=== PATIENT | male | born 1945 | race Caucasian/White ===

== ENCOUNTER → 2023-06-22 11:23 | Outpatient (REF) | payer MEDICARE, OTHER, SELFPAY | LOC: HWRAD 11:23 | PROVIDERS: ATTENDING PHYSICIAN Urology; FAMILY PHYSICIAN Internal Medicine; REFERRING PHYSICIAN Internal Medicine Critical Care Medicine | DX: R91.1 Solitary pulmonary nodule (principal); N20.0 Calculus of kidney | CPT/HCPCS: 71250; 76775 ==

== ENCOUNTER → 2023-07-08 13:40 | Outpatient (REF) | payer MEDICARE, OTHER, SELFPAY | LOC: RCS 13:40 | PROVIDERS: ATTENDING PHYSICIAN Internal Medicine Cardiovascular Disease; FAMILY PHYSICIAN Internal Medicine | DX: I42.9 Cardiomyopathy, unspecified (principal); I35.1 Nonrheumatic aortic (valve) insufficiency | CPT/HCPCS: 93306; 93356 ==

== ENCOUNTER → 2024-06-27 13:59 | Outpatient (REF) | payer MEDICARE, OTHER, SELFPAY | LOC: HWRAD 13:59 | PROVIDERS: ATTENDING PHYSICIAN Urology; FAMILY PHYSICIAN Internal Medicine | DX: N20.0 Calculus of kidney (principal) | CPT/HCPCS: 76775 ==

== ENCOUNTER → 2024-07-02 12:45 | Outpatient (REF) | payer MEDICARE, SELFPAY | LOC: HWRCS 12:45 | PROVIDERS: ATTENDING PHYSICIAN Internal Medicine Cardiovascular Disease; FAMILY PHYSICIAN Internal Medicine | DX: I42.9 Cardiomyopathy, unspecified (principal); I10 Essential (primary) hypertension | CPT/HCPCS: 93306 ==

== ENCOUNTER → 2024-11-06 13:39 | Outpatient (REF) | payer MEDICARE, SELFPAY | LOC: HWRAD 13:39 | PROVIDERS: ATTENDING PHYSICIAN Internal Medicine | DX: M79.642 Pain in left hand (principal); M25.512 Pain in left shoulder | CPT/HCPCS: 71101; 73030; 73130 ==

== ENCOUNTER 2025-01-03 14:28 | Inpatient (IN) | payer MEDICARE, OTHER, SELFPAY ==
[2025-01-03 11:08] VITALS: BP 123/62
[2025-01-03 11:29] LABS: Glucose - Point of Care 157 mg/dl (70-99)
[2025-01-03 11:33] LABS: Hematocrit 49.1 % (39.0-52.0); Hemoglobin 16.1 g/dL (13.0-18.0); Mean Corp Hgb Conc. 32.8 g/dL (33.0-37.0); Mean Corpuscular Volume 101.4 fL (80.0-94.0); Nucleated Red Blood Cells % 0 % (-); Platelet Count 176 10^3/uL (130-400); Red Cell Dist. Width 13.3 % (11.5-14.5)
--- NOTE | 2025-01-03 11:42 | ED.GENMED ---
History of Present Illness
General
Chief Complaint: Fainting Sensation
Time Seen by Provider: 01/03/25 11:10
History of Present Illness
History of Present Illness:
Patient is a 79-year-old man with history of TBI, hypertension, hyperlipidemia, factor V Leiden presenting to the emergency department with concerns for near syncope. Patient states the last he remembers is he was shaving. He then woke up on the
bathroom floor. Per patient's she states that patient came out of the bathroom. He was standing in the bathroom doorway when he started to stare off. She then grabbed him to help him sit down and noticed that his left arm was completely
flaccid. She does note that he was overall weak and she was holding him up by the right arm. She helped him sit on a chair and then he eventually slid off the chair. Shortly after he came to. There was no postictal phase. No urinary
incontinence. No tongue biting. His eyes were open the entire time to staring off. Patient at this time has no complaints. He feels completely back to his normal self
Phy Exam
Physical Exam
Physical Exam:
GENERAL: in no acute distress
HEENT: normocephalic, extraocular movements intact, moist oral mucosa
NECK: normal inspection
RESPIRATORY: no respiratory distress, clear to auscultation bilaterally
CARDIOVASCULAR: regular rate and rhythm
ABDOMEN/: soft, non-distended, non-tender to palpation, no rebound or guarding
EXTREMITIES: non-tender, no edema/swelling
NEUROLOGIC: awake and alert, moves all extremities, equal strength in upper and lower extremities, normal sensation, normal [id number], NIH 0
SKIN: warm
Course
Orders/Labs/Results
Orders:
Orders
01/03/25 11:05
Electrocardiogram (*1) Urgent
Reason for Study: Chest Pain
Cardiac Monitoring- Treatment ONCE
EKG- Treatment ONCE
IV Insert/Care/Rem.- Treatment PRN
01/03/25 11:06
Complete Blood Count/With Diff Urgent
Comprehensive Metabolic Panel Urgent
Prothrombin Time Urgent
Troponin I Urgent
01/03/25 11:10
Orthostatic VS- Treatment ONCE
01/03/25 11:11
CT Head W/o Iv Contrast Urgent
Comment:
Reason For Exam: near syncope
Abnormal Lab Results
01/03/25 01/03/25
11:06 11:27
MCV 101.4 H fL
(80.0-94.0)
MCH 33.3 H pg
(27.0-31.0)
MCHC 32.8 L g/dL
(33.0-37.0)
PT 16.3 H Sec
(11.4-14.6)
BUN 26 H mg/dl
(9-20)
Glucose 154 H mg/dl
(70-99)
POC Glucose 157 H mg/dl
(70-99)
01/03/25 11:06
01/03/25 11:06
Vital Signs
Initial and Last Documented VS:
Initial Vital Signs
Resp
20
01/03/25 11:02
Last Documented Vital Signs
Temp Pulse Resp BP Pulse Ox
97.7 F 61 20 123/62 93
01/03/25 11:08 01/03/25 11:08 01/03/25 11:08 01/03/25 11:08 01/03/25 11:46
MDM/Problems Addressed
Differential Diagnosis Includes:
Patient is a 79-year-old man presenting to the emergency department with an episode of staring off. On arrival vitals unremarkable and exam is reassuring. Differential consists of TIA versus syncope such as a cardiac arrhythmia given the patient
has no recollection. Could be seizure though less likely. Will check blood work EKG CT scan. Patient will need admission.
*Pulse Oximetry
SaO2: 93
Oxygen Mode of Delivery: Room air
Patient hypoxic: no
*Critical Care Note
Total Time (30-74mins, 75-104mins- exclusive of procedures): Not Applicable
Update Note
Update Note:
Blood work reassuring. EKG per my interpretation sinus bradycardia with left bundle branch block. CT scan of the head negative. Patient will need admission for further evaluation and monitoring. Discussed with hospitalist who accepted patient to
their service
ED Attending Note
-
Portions of this chart may have been created with voice recognition software.� Occasional wrong word or��sound alike� substitutions may have occurred due to the inherent limitations of voice recognition software.
Discharge Plan
Departure
Patient Disposition: Admit
Date of Disposition: 01/03/25
Time of Disposition: 12:50
Presentation/result/management discussed w/ accepting MD/DO: Hospitalist
Discharge Problem:
Near syncope
Prescriptions:
No Action
simvastatin 40 MG tablet
40 mg PO HS
glimepiride 4 MG tablet
4 mg PO BID
lisinopril 2.5 MG tablet
2.5 mg PO HS
escitalopram oxalate 20 MG tablet
20 mg PO HS
sitagliptin phosphate [Januvia] 100 MG tablet
100 mg PO HS
canagliflozin [Invokana] 100 MG tablet
100 mg PO DAILY
enoxaparin 60 MG/0.6 ML syringe
60 mg SC WETH PRN (Reason: pre op)
Patient Comments:
pre op- to start today 10/08/20 as off of xarelto.
bupropion HCl 150 MG tablet extended release 24 hr
150 mg PO DAILY
multivitamin with folic acid [Tab-A-Peyton] 1 TABLET tablet
1 tab PO DAILY
cholecalciferol (vitamin D3) 125 MCG tablet,disintegrating
5,000 unit PO HS
acetaminophen 325 MG tablet
650 mg PO Q4HPRN PRN (Reason: LEAVITT, mild pain, or temp >100.4F) Qty: 30 0RF
rivaroxaban [Xarelto] 20 MG tablet
20 mg PO HS Qty: 0 0RF
Rx Instructions:
HOLD UNTIL INSTRUCTED BY UROLOGY
Referrals:
UNKNOWN - PT DOES,NOT KNOW [Family Provider]
Interventions
Interventions:
*General Assessment Last Done: 01/03/25 11:02
ED- Cardiac Assessment Last Done: 01/03/25 11:08
ED- Neurological Assessment Last Done: 01/03/25 11:08
Discharge Date and Time
Print Language: CYPRIOT
[2025-01-03 11:45] LABS: ALT (SGPT) 14 U/L (0-50); AST (SGOT) 19 U/L (17-59); Albumin 4.3 g/dl (3.5-5.0); Alkaline Phosphatase 62 U/L (38-126); Blood Urea Nitrogen 26 mg/dl (9-20); Calcium 9.2 mg/dl (8.4-10.2); Carbon Dioxide 28 mmol/L (22-30); Chloride 105 mmol/L (98-107); Glucose 154 mg/dl (70-99); Potassium 4.3 mmol/L (3.5-5.1); Sodium 137 mmol/L (135-145); Total Protein 7.5 g/dl (6.3-8.2); eGFR > 60.00
[2025-01-03 11:51] LABS: INR 1.26; PT 16.3 Sec (11.4-14.6)
[2025-01-03 12:00] VITALS: BP 121/61
[2025-01-03 12:31] LABS: Troponin I 0.016 ng/ml
[2025-01-03 13:00] VITALS: BP 119/59
--- NOTE | 2025-01-03 14:14 | HPS.HSE ---
Family Physician
-
Family Physician: NOT KNOW UNKNOWN - PT DOES
Chief Complaint
-
Episode of unresponsiveness
History of Present Illness
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
chronic anticoagulation with Xarelto, history of DVT and remote IVC filter, nephrolithiasis who presents to the emergency room accompanied by after episode of unresponsiveness. Patient himself could not recall any events. According to the
patient's he came out of the bathroom after partially shaving with blank stare. He had been sliding down to the floor. Was no evidence of tonic-clonic activity. Patient in the emergency room is hemodynamically stable with no focal findings
on neurologic exam. He stated being at his baseline prior to the events
Medical History
Past Medical History
Past Medical History: Reports CVA, Hypercholesterolemia, NIDDM and Other (Right sided posterior cerebral artery cerebral infarction, hypertension, diabetes mellitus type 2, hyperlipidemia, traumatic brain injury, thrombophilia on chronic Xarelto)
Past Surgical History: Reports Other (IVC filter, cervical spine fusion, lumbosacral fusion.)
Social History
Tobacco: Non-smoker
Alcohol: None
Drug: None
Personal:
Living: With Family
Family History
Family History: Not pertinent
Allergies / Home Medications
Allergies reflects when Allergies were last updated in [employer].
Home Medications with original date entered in [employer]
Allergy/Medication List:
Allergies
Allergy/AdvReac Type Severity Reaction Status Date / Time
No Known Drug Allergies Allergy Unknown Verified 01/03/25 11:02
Home Medications
escitalopram oxalate 20 mg tablet 20 mg PO HS Mental Health/Anxiety 10/07/20
glimepiride 4 mg tablet 4 mg PO QPM Diabetes 10/07/20
sitagliptin phosphate 100 mg tablet (Januvia) 100 mg PO QPM Diabetes 10/07/20
multivitamin with folic acid 400 mcg tablet (Tab-A-Peyton) 1 tab PO DAILY Supplement 10/08/20
rivaroxaban 20 mg tablet (Xarelto) 20 mg PO HS ##0 10/09/20
alpha lipoic acid 200 mg capsule 200 mg PO DAILY Supplement 01/03/25
bimatoprost 0.01 % eye drops (Lumigan) 1 drp BOTH EYES HS Eye Condition 01/03/25
cholecalciferol (vitamin D3) 25 mcg (1,000 unit) tablet (Vitamin D3) 25 mcg PO DAILY Supplement 01/03/25
empagliflozin 25 mg tablet (Jardiance) 25 mg PO DAILY Diabetes 01/03/25
evolocumab 140 mg/mL subcutaneous pen injector (Repatha SureClick) 140 mg SC Q2W High Cholesterol 01/03/25
gabapentin 100 mg capsule 100 mg PO HS Neurological Condition 01/03/25
Review of Systems
-
A 12 point ROS was completed and negative except as noted: Yes
Neurological: Reports See HPI
Physical Exam
Vital Signs
Vital Signs
Temp Pulse Resp BP Pulse Ox
97.7 F 60 19 119/59 92
01/03/25 11:08 01/03/25 14:00 01/03/25 14:00 01/03/25 13:00 01/03/25 13:45
Physical Exam
General: Well Developed, Well Nourished and No Apparent Distress
HEENT: NormoCephalic, Moist mucous membranes and Atraumatic
Respiratory: Clear
Cardiac: S1/S2 and Regular Rhythm; No Murmur or Rub
GI: Soft, Non Tender, Non Distended and Normal Bowel Sounds; No Organomegaly
Rectal: Deferred by Provider
Musculoskeletal: No Clubbing, No Cyanosis and No Edema
Skin: No Rash
Neuro: Nonfocal/grossly intact
Laboratory Results
-
01/03/25 11:06
01/03/25 11:06
Laboratory Results
PT 16.3 Sec (11.4-14.6) H 01/03/25 11:06
INR 1.26 01/03/25 11:06
Total Bilirubin 1.0 mg/dl (0.2-1.3) 01/03/25 11:06
AST 19 U/L (17-59) 01/03/25 11:06
ALT 14 U/L (0-50) 01/03/25 11:06
Alkaline Phosphatase 62 U/L (38-126) 01/03/25 11:06
Troponin I 0.016 ng/ml 01/03/25 11:06
Impression/Plan
-
IMPRESSION:
79 years old male with history of prior CVA, factor V Leyden deficiency on Xarelto, TBI presents with episode of blank stare.
Conditions prior to admission:
Right-sided posterior cerebral artery infarction on imaging/CT scan 2020.
Essential hypertension.
Diabetes type 2.
Dyslipidemia.
TBI.
Factor V Leyden mutation with history of DVT/IVC filter removed.
Chronic anticoagulation with Xarelto.
Cervical and lumbar spine surgeries.
PLAN:
Episode of unresponsiveness.
Differential diagnosis possible atypical seizure, less likely metabolic encephalopathy, no reported syncope or loss of consciousness, low clinical suspicion for cardiac event.
Neurologic exam in the ED with no focal findings
CT scan of the head with no acute abnormalities
Admitted for close monitoring
Neurology evaluation
MRI of the brain
Orthostatic vitals
EEG
Essential hypertension.
Patient is not on any antihypertensive medications prior to admission
Monitor blood pressure trend.
Orthostatic vitals
Type 2 diabetes.
Update hemoglobin A1c.
Basal bolus protocol per
Carbohydrate diet
Continue preadmission Jardiance glimepiride and Januvia
Dyslipidemia
On Repatha
Traumatic brain injury/depression/neuropathy
Preadmission regimen including gabapentin, escitalopram
--- NOTE | 2025-01-03 14:32 | CON.NEURO4 ---
Addendum entered and electronically signed by Jaime Morgan MD 01/03/25 17:26:
. Aspirin 81 mg and atorvastatin 40 mg daily.
Original Note:
Consultation - Neurology 4
-
CONSULTING PHYSICIAN: Dr. Jaiem Morgan
REFERRING PHYSICIAN: Dr. Dayne Wayne
DICTATED BY: Dr. Jaime Morgan
DATE/TIME OF REQUEST: 01/03/2025
DATE/TIME OF CONSULTATION: 01/03/2025
Reason for Consultation: Near Syncope
ASSESSMENT AND PLAN:
The patient is an 79 years old male with a past medical history of TBI about 10 years ago, hypertension, hyperlipidemia, factor V Leiden on Xarelto and depression, presenting to the emergency department with concerns for near syncope while he was
shaving in the bathroom. The patient's noted that the patient had generalized weakness, but she felt that his left arm was completely flaccid. There was no head injury as per his . There is no history of seizure-like activity, tongue bite
or urinary incontinence. His eyes were open the entire time and according to his he did not lose consciousness. The patient says that his blood pressure is usually on the lower side and today the blood pressure was 119/59. The patient at
this time feels completely back to his normal self and he has no complaints.
. CT of the head did not show acute intracranial abnormality.
. Check orthostatics.
The patient likely had an episode of near syncope. He does not appear to have had a seizure or a stroke. The patient had generalized weakness and her left arm appeared to be flaccid as per his . Will keep the patient on the stroke pathway for
now, and get a CTA of the head and neck and MRI of the brain.
Will also check orthostatics. CT of the head did not show acute intracranial abnormality.
History of Present Illness:
The patient is an 79 years old male with a past medical history of TBI about 10 years ago, hypertension, hyperlipidemia, factor V Leiden on Xarelto and DM, presenting to the emergency department with concerns for near syncope. According to the
patient's the patient was shaving in the bathroom, but he took too long to come out of the bathroom, so the went into the bathroom, and saw him staring, and he was leaning to one side, and was about to fall, but the patient's grabbed
his right arm and helped him to sit down on a chair, which she keeps in the bathroom for the patient to sit on, if he is tired. The patient's noted that the patient had generalized weakness, but she felt that his left arm was completely
flaccid. There was no head injury as per his . There is no history of seizure-like activity, tongue bite or urinary incontinence. His eyes were open the entire time and according to his he did not lose consciousness. The patient at this
time feels completely back to his normal self and he has no complaints.
Past Medical History: TBI about 10 years ago, hypertension, hyperlipidemia, factor V Leiden.
Review of Symptoms:
The patient denies headache, dizziness, chest pain, shortness of breath, fever, chills, nausea and vomiting.
Neurologic Examination:
The patient is alert and is oriented x 3
Speech is clear
The cranial nerves II to XII are grossly intact
The motor strength is grossly 5/5 bilaterally
The sensations are grossly intact
There was no limb ataxia seen.
Vital Signs and Labs
-
Vital Signs and Labs:
Vital Signs
Temp Pulse Resp BP Pulse Ox
36.5 C 60 19 119/59 92
01/03/25 11:08 01/03/25 14:00 01/03/25 14:00 01/03/25 13:00 01/03/25 13:45
Lab Results
01/03/25 11:06
01/03/25 11:06
PT 16.3 Sec (11.4-14.6) H 01/03/25 11:06
INR 1.26 01/03/25 11:06
Sodium 137 mmol/L (135-145) 01/03/25 11:06
Potassium 4.3 mmol/L (3.5-5.1) 01/03/25 11:06
BUN 26 mg/dl (9-20) H 01/03/25 11:06
Glucose 154 mg/dl (70-99) H 01/03/25 11:06
Calcium 9.2 mg/dl (8.4-10.2) 01/03/25 11:06
Medications
-
Home Medications
�Medication �Instructions �Recorded
escitalopram oxalate 20 mg tablet 20 mg PO HS Mental Health/Anxiety 10/07/20
glimepiride 4 mg tablet 4 mg PO QPM Diabetes 10/07/20
sitagliptin phosphate 100 mg 100 mg PO QPM Diabetes 10/07/20
tablet (Januvia)
multivitamin with folic acid 400 1 tab PO DAILY Supplement 10/08/20
mcg tablet (Tab-A-Peyton)
rivaroxaban 20 mg tablet (Xarelto) 20 mg PO HS ##0 10/09/20
alpha lipoic acid 200 mg capsule 200 mg PO DAILY Supplement 01/03/25
bimatoprost 0.01 % eye drops 1 drp BOTH EYES HS Eye Condition 01/03/25
(Lumigan)
cholecalciferol (vitamin D3) 25 25 mcg PO DAILY Supplement 01/03/25
mcg (1,000 unit) tablet (Vitamin
D3)
empagliflozin 25 mg tablet 25 mg PO DAILY Diabetes 01/03/25
(Jardiance)
evolocumab 140 mg/mL subcutaneous 140 mg SC Q2W High Cholesterol 01/03/25
pen injector (Repatha SureClick)
gabapentin 100 mg capsule 100 mg PO HS Neurological Condition 01/03/25
--- NOTE | 2025-01-03 14:52 | CM ---
chart reviewed. Spoike with patient and his at ED bedside
Lives in a [place] with 2 [place]
Independent with all ADLS and ambulation
Does NOT drive drives
DME grab bars in bathroom, cane for outside
Son in [facility]
PCP Dr. Maddy Nickerson
RX plan yes
Pharmacy [facility]
no hx of VN nor SNF
DCP is to return home
can drive him home
CM will continue to follow up for any dcp needs
[2025-01-03 17:31] VITALS: BMI 28.6
[2025-01-03 17:32] VITALS: BP 140/66
[2025-01-03 18:09] LABS: Glucose - Point of Care 172 mg/dl (70-99)
[2025-01-03] MEDS: AMARYL 4 MG PO (18:13)
[2025-01-03] MEDS: JANUVIA 100 MG PO (18:14)
--- NOTE | 2025-01-03 18:16 | PTCARENOTE ---
Pt transferred from ED. Pt ambulated into room with assistance. Pt hx of TBI, forgetful, bed alarm applied. NIH 1. Pt oriented to unit, call carpenter within reach. Will continue with current.
[2025-01-03] MEDS: NOVOLOG FLEXPEN-LOW RESISTANCE 1 UNITS SC (18:27)
[2025-01-03 20:45] VITALS: BP 136/66
[2025-01-03] MEDS: XARELTO 20 MG PO (21:23)
[2025-01-03] MEDS: NEURONTIN 100 MG PO (21:23)
[2025-01-03] MEDS: LEXAPRO 20 MG PO (21:23)
[2025-01-03] MEDS: XALATAN OPHTHALMIC SOLUTION 1 DROP BOTH EYES (21:24)
[2025-01-03 21:38] LABS: Glucose - Point of Care 108 mg/dl (70-99)
[2025-01-03 23:38] VITALS: BP 144/72
[2025-01-04 03:53] VITALS: BP 141/69
[2025-01-04 07:54] LABS: HDL Cholesterol 46 mg/dl; LDL Cholesterol, Calculated 98 mg/dl; Very Low Density Lipoprotein 17 mg/dl (0-30)
[2025-01-04] MEDS: FARXIGA 10 MG PO (07:56)
[2025-01-04] MEDS: THERAGRAN 1 TABLET PO (07:56)
[2025-01-04] MEDS: VITAMIN D3 (cholecalciferol) 25 MCG PO (07:56)
[2025-01-04] MEDS: NOVOLOG FLEXPEN-LOW RESISTANCE SC ×2 (08:10→11:42)
[2025-01-04 08:11] LABS: Glucose - Point of Care 81 mg/dl (70-99)
[2025-01-04 08:47] VITALS: BP 140/73
[2025-01-04 09:38] VITALS: BP 124/67; BP 125/68; BP 130/65; PULSE 68; O2SAT 92
[2025-01-04 09:52] LABS: Glycohemoglobin (HgbA1c) 6.0 % (4.0-5.9)
[2025-01-04 10:42] VITALS: BP 124/67; BP 125/68; BP 130/65; PULSE 67; PULSE 70; O2SAT 92
[2025-01-04 11:33] VITALS: BP 122/63
[2025-01-04 11:39] LABS: Glucose - Point of Care 128 mg/dl (70-99)
--- NOTE | 2025-01-04 12:06 | PTOTSP ---
Dysphagia Evaluation:
Pt presents w/ acute (AMS, unresponsive episode, stroke pathway) and chronic (TBI, reports CVA) risk factors for aspiration/dysphagia. However, no overt s/sx of aspiration observed during bedside swallow evaluation, no reports of difficulty w/ P.O.
intake, no hx of PNAs, pt is on room air, and 01/[address] indicates no acute intracranial abnormality. It is recommended that pt continues on Regulars, Thins diet and ST F/U pending Brain MRI results.
Recommendations:
1. Regulars, Thins
2. Medications as best tolerated
3. Partial assistance/supervision w/ meals
4. Strategies: Slow rate, alternating liquid washes, limit distractions
5. F/U w/ ST to observe diet level tolerance, determine if VSE warranted to rule out silent aspiration, and further assess cognition/language pending Brain MRI results.
--- NOTE | 2025-01-04 14:17 | CM ---
Chart reviewed and patient to return to home with spouse when stable. no needs.
Plan; Home with spouse when stable.
--- NOTE | 2025-01-04 14:43 | W.DS.TRANS ---
DC Summary - Nurse Monitoring
-
Discharge Instructions:
Discharge Diagnosis/Procedures Altered mental status
Diet Regular
Instructions:
Stand-Alone Forms:
Changes to Home Medications: No
Discharge Medications:
DC Medications w/original date entered in [employer]
escitalopram oxalate 20 mg tablet 20 mg PO HS Mental Health/Anxiety 10/07/20
glimepiride 4 mg tablet 4 mg PO QPM Diabetes 10/07/20
sitagliptin phosphate 100 mg tablet (Januvia) 100 mg PO QPM Diabetes 10/07/20
multivitamin with folic acid 400 mcg tablet (Tab-A-Peyton) 1 tab PO DAILY Supplement 10/08/20
rivaroxaban 20 mg tablet (Xarelto) 20 mg PO HS ##0 10/09/20
alpha lipoic acid 200 mg capsule 200 mg PO DAILY Supplement 01/03/25
bimatoprost 0.01 % eye drops (Lumigan) 1 drp BOTH EYES HS Eye Condition 01/03/25
cholecalciferol (vitamin D3) 25 mcg (1,000 unit) tablet (Vitamin D3) 25 mcg PO DAILY Supplement 01/03/25
empagliflozin 25 mg tablet (Jardiance) 25 mg PO DAILY Diabetes 01/03/25
evolocumab 140 mg/mL subcutaneous pen injector (Repatha SureClick) 140 mg SC Q2W High Cholesterol 01/03/25
gabapentin 100 mg capsule 100 mg PO HS Neurological Condition 01/03/25
Home Medication Changes
Pending Results: No
--- NOTE | 2025-01-04 14:45 | W.PN.NEURO.1 ---
Today's Communication / Plan
-
Today, the patient feels completely back to his normal self and he has no complaints. According to his the patient also walked independently today and is gait is back to normal.
. CT of the head did not show acute intracranial abnormality.
. Orthostatics were negative.
. The MRI of the brain did not show any acute intracranial abnormality.
The patient likely had an episode of near syncope. He does not appear to have had a seizure or a stroke. The EEG is normal.
Continue Xarelto as he has a history of factor V Leiden.
Follow-up in neurology clinic in 2 weeks.
Subjective/Objective
Subjective Data
Date of Service: January 04, 2025
The patient is an 79 years old male with a past medical history of TBI about 10 years ago, hypertension, hyperlipidemia, factor V Leiden on Xarelto and depression, presenting to the emergency department with concerns for near syncope while he was
shaving in the bathroom. The patient's noted that the patient had generalized weakness. There was no head injury as per his . There is no history of seizure-like activity, tongue bite or urinary incontinence. His eyes were open the
entire time and according to his he did not lose consciousness. The patient says that his blood pressure is usually on the lower side and today the blood pressure was 119/59.
Today, the patient feels completely back to his normal self and he has no complaints. According to his the patient also walked independently today and is gait is back to normal.
. CT of the head did not show acute intracranial abnormality.
. Orthostatics were negative.
. The MRI of the brain did not show any acute intracranial abnormality.
The patient likely had an episode of near syncope. He does not appear to have had a seizure or a stroke. The EEG is normal.
Continue Xarelto as he has a history of factor V Leiden.
Follow-up in neurology clinic in 2 weeks.
Objective Data
Vital Signs
Temp Pulse Resp BP Pulse Ox
36.4 C 72 16 122/63 94
01/04/25 11:33 01/04/25 11:33 01/04/25 11:33 01/04/25 11:33 01/04/25 11:33
Lab Results
01/03/25 11:06
01/03/25 11:06
PT 16.3 Sec (11.4-14.6) H 01/03/25 11:06
INR 1.26 01/03/25 11:06
Sodium 137 mmol/L (135-145) 01/03/25 11:06
Potassium 4.3 mmol/L (3.5-5.1) 01/03/25 11:06
BUN 26 mg/dl (9-20) H 01/03/25 11:06
Glucose 154 mg/dl (70-99) H 01/03/25 11:06
Calcium 9.2 mg/dl (8.4-10.2) 01/03/25 11:06
LDL Cholesterol, Calc 98 mg/dl 01/04/25 05:57
Patient Allergies
No Known Drug Allergies Allergy (Verified 01/03/25 11:02)
Unknown
Vital Signs and Labs
-
Vital Signs and Labs:
Vital Signs
Temp Pulse Resp BP Pulse Ox
36.4 C 72 16 122/63 94
01/04/25 11:33 01/04/25 11:33 01/04/25 11:33 01/04/25 11:33 01/04/25 11:33
Lab Results
01/03/25 11:06
01/03/25 11:06
PT 16.3 Sec (11.4-14.6) H 01/03/25 11:06
INR 1.26 01/03/25 11:06
Sodium 137 mmol/L (135-145) 01/03/25 11:06
Potassium 4.3 mmol/L (3.5-5.1) 01/03/25 11:06
BUN 26 mg/dl (9-20) H 01/03/25 11:06
Glucose 154 mg/dl (70-99) H 01/03/25 11:06
Calcium 9.2 mg/dl (8.4-10.2) 01/03/25 11:06
LDL Cholesterol, Calc 98 mg/dl 01/04/25 05:57
Medications
-
Active Medications
Generic Name Dose Route Start Last Admin
Trade Name Freq PRN Reason Stop Dose Admin
Acetaminophen 650 mg 01/03/25 17:33
Acetaminophen 650 Mg Rectal Suppository RECTAL 01/31/25 17:32
Q4HPRN PRN
LEAVITT, mild pain, or temp >100.4F
Acetaminophen 650 mg 01/03/25 17:33
Acetaminophen 325 Mg Tablet PO 01/31/25 17:32
Q4HPRN PRN
LEAVITT, mild pain, or temp >100.4F
Cholecalciferol 25 mcg 01/04/25 08:00 01/04/25 07:56
Cholecalciferol (Vitamin D3) 25 Mcg Tablet (1,000 Units) PO 02/01/25 07:59 25 mcg
DAILY SHOBHA Administration
Dapagliflozin 10 mg 01/04/25 08:00 01/04/25 07:56
Dapagliflozin (Farxiga) 10 Mg Tablet PO 02/01/25 07:59 10 mg
DAILY SHOBHA Administration
Dextrose 12.5 grams 01/03/25 17:33
Dextrose 50% (0.5 Grams/Ml) 50 Ml Syringe IV 01/31/25 17:32
[id number] PRN
hypoglycemia
Protocol
Escitalopram Oxalate 20 mg 01/03/25 22:00 01/03/25 21:23
Escitalopram 20 Mg Tablet PO 01/31/25 21:59 20 mg
HS SHOBHA Administration
Gabapentin 100 mg 01/03/25 22:00 01/03/25 21:23
Gabapentin 100 Mg Capsule PO 01/31/25 21:59 100 mg
HS SHOBHA Administration
Glimepiride 4 mg 01/03/25 18:00 01/03/25 18:13
Glimepiride 2 Mg Tablet PO 01/31/25 17:59 4 mg
QPM SHOBHA Administration
Glucagon 1 mg 01/03/25 17:33
Glucagon 1 Mg Vial IM 01/31/25 17:32
PRN PRN
hypoglycemia
Protocol
Insulin Aspart 0 units 01/03/25 17:33 01/04/25 11:42
Insulin Aspart Low Resistance 300 Units/3 Ml Pen.Injctr SC 01/31/25 17:32 Not Given
AC SHOBHA
Protocol
Latanoprost 1 drop 01/03/25 22:00 01/03/25 21:24
Latanoprost 0.005% (Ophthalmic Solution) 2.5 Ml Bottle BOTH EYES 01/31/25 21:59 1 drop
HS SHOBHA Administration
Multivitamins Therapeutic 1 tablet 01/04/25 08:00 01/04/25 07:56
Multivitamin Tablet PO 02/01/25 07:59 1 tablet
DAILY SHOBHA Administration
Rivaroxaban 20 mg 01/03/25 22:00 01/03/25 21:23
Rivaroxaban 20 Mg Tablet PO 01/31/25 21:59 20 mg
HS SHOBHA Administration
Sitagliptin Phosphate 100 mg 01/03/25 18:00 01/03/25 18:14
Sitagliptin (Januvia) 100 Mg Tablet PO 01/31/25 17:59 100 mg
QPM SHOBHA Administration
Sodium Chloride 0 flush 01/03/25 18:00
Sodium Chloride 0.9% (Flush) Syringe IV 01/31/25 17:59
PER PROTOCOL SHOBHA
Home Medications
�Medication �Instructions �Recorded
escitalopram oxalate 20 mg tablet 20 mg PO HS Mental Health/Anxiety 10/07/20
glimepiride 4 mg tablet 4 mg PO QPM Diabetes 10/07/20
sitagliptin phosphate 100 mg 100 mg PO QPM Diabetes 10/07/20
tablet (Januvia)
multivitamin with folic acid 400 1 tab PO DAILY Supplement 10/08/20
mcg tablet (Tab-A-Peyton)
rivaroxaban 20 mg tablet (Xarelto) 20 mg PO HS ##0 10/09/20
alpha lipoic acid 200 mg capsule 200 mg PO DAILY Supplement 01/03/25
bimatoprost 0.01 % eye drops 1 drp BOTH EYES HS Eye Condition 01/03/25
(Lumigan)
cholecalciferol (vitamin D3) 25 25 mcg PO DAILY Supplement 01/03/25
mcg (1,000 unit) tablet (Vitamin
D3)
empagliflozin 25 mg tablet 25 mg PO DAILY Diabetes 01/03/25
(Jardiance)
evolocumab 140 mg/mL subcutaneous 140 mg SC Q2W High Cholesterol 01/03/25
pen injector (Rossi Mcclelland)
gabapentin 100 mg capsule 100 mg PO HS Neurological Condition 01/03/25
--- NOTE | 2025-01-04 20:23 | EEG.RPT ---
Electroencephalogram Report
Recording
Date of EE01/04/25
Type of EEG: Routine
Length of EEG recordin minutes
Done with Video Recording: Yes
Patient Status: Inpatient
Recording Conditions: Awake and Drowsy
Hyperventilation Performed: No
Photic Stimulation Performed: Yes
Report
Methods;
A 21 channel digitized electroencephalogram was performed. The 10-20 International system of electrode placement was used. ECG was monitored. Video was recorded.
EEG Interpretation:
The posterior dominant rhythm reaches up to 10 Hz.
The background rhythm did not show any significant asymmetry of amplitude or frequency between the hemispheres.
Hyperventilation was not performed.
Photic stimulation did not produce any abnormal change.
Drowsiness was seen.
There was no definite epileptiform activity seen.
Clinical correlation:
This is a normal awake and drowsy state EEG. A normal EEG does not rule out the possibility of a seizure. Clinical correlation is recommended.
== END 2025-01-04 15:06 | disposition home or self-care (01) | DRG 312 ==
LOC: 4 WEST ACU 14:28
PROVIDERS: ADMITTING PHYSICIAN Internal Medicine; CONSULT PHYSICIAN Psychiatry & Neurology Neurology; EMERGENCY PHYSICIAN Student in an Organized Health Care Education/Training Program
DX: R55 Syncope and collapse (principal); D68.51 Activated protein C resistance; E11.9 Type 2 diabetes mellitus without complications; I10 Essential (primary) hypertension; Z86.718 Personal history of other venous thrombosis and embolism; Z79.01 Long term (current) use of anticoagulants; Z86.73 Personal history of transient ischemic attack (TIA), and cerebral infarction without residual deficits; Z98.1 Arthrodesis status; Z95.828 Presence of other vascular implants and grafts; E78.00 Pure hypercholesterolemia, unspecified; Z79.84 Long term (current) use of oral hypoglycemic drugs; Z87.442 Personal history of urinary calculi; F32.A Depression, unspecified
CPT/HCPCS: 70450; 70551; 80053; 80061; 82962; 83036; 84484; 85025; 85610; 92610; 93005; 95816; 97162; 97167; 99285